=== PATIENT | female | born 2000 | race Hispanic/Latino ===

== ENCOUNTER 2022-05-24 07:39 | Emergency (ER) | payer OTHER ==
[~2022-05-24] VITALS: Ht 170.2 cm; Wt 117.0 kg
[2022-05-24] MEDS ORDERED: ACETAMINOPHEN 500 MG TABLET PO STA (08:25)
[2022-05-24 08:54] VITALS: BP 124/87
[2022-05-24] MEDS ORDERED: OSEL75 PO (09:27)
== END 2022-05-24 09:32 | disposition home or self-care (01) ==
LOC: EDH 07:39
DX: J11.1 Influenza due to unidentified influenza virus with other respiratory manifestations (principal); Z20.822 Contact with and (suspected) exposure to COVID-19
CPT/HCPCS: 99283; 87635; 87880; 87804 ×2; 81025; C9803